=== PATIENT | male | born 1960 | race African-American/Black ===

== ENCOUNTER → 2016-10-17 | Outpatient (CLI) | payer OTHER ==
[~2016-10-17] MED LIST: ALBUAER3 INH; AMLO10 PO; ASPI81TA81; B-CO1TAB5; BLOOD GLUCOSE T1 TES; CYCL1TAB29 PO; DIPH25CA PO; GLYB5TAB3 PO; HYDR-3799 PO; HYDR25TA35 PO; HYDR25TA5 PO; IBUP400T20 PO; LEVEMIR SQ; LEVO25TA4 PO; LYSI1TAB4; METF1000 PO; METO100T PO; NAPR500T PO; NORV10TA OR; VITA500C9 CHEW; insulin needles SQ
[2016-10-17 10:53] LABS: BASOPHIL # 0.1 TH/MM3 (0-0.2); BASOPHIL % 1.1 % (0.0-2.0); EOSINOPHIL # 0.2 TH/MM3 (0-0.4); EOSINOPHIL % 3.8 % (0.0-4.0); HEMATOCRIT 39.9 % (39.0-51.0); HEMO FLAGS DIFF FINAL; LYMPH % 29.6 % (9.0-44.0); LYMPHOCYTE # 1.7 TH/MM3 (1.0-4.8); MEAN CELL VOLUME 81.8 FL (80.0-100.0); MEAN CORPUSCULAR HEMOGLOBIN 26.4 PG (27.0-34.0); MEAN CORPUSCULAR HGB CONC 32.2 % (32.0-36.0); MONO % 11.5 % (0.0-8.0); PLATELET COUNT 242 TH/MM3 (150-450); RED BLOOD COUNT 4.88 MIL/MM3 (4.50-5.90); RED CELL DISTRIBUTION WIDTH 15.3 % (11.6-17.2); WHITE BLOOD COUNT 5.6 TH/MM3 (4.0-11.0)
[2016-10-17 11:22] LABS: ALT (GPT) 48 U/L (12-78); ANION GAP 9 MEQ/L (5-15); AST (GOT) 30 U/L (15-37); BICARBONATE 28.5 MEQ/L (21.0-32.0); BLOOD UREA NITROGEN 9 MG/DL (7-18); CHLORIDE 103 MEQ/L (98-107); GLOMERULAR FILTRATION RATE 97 ML/MIN (>89); GLUCOSE,FASTING 154 MG/DL (74-99); POTASSIUM 3.6 MEQ/L (3.5-5.1); SODIUM (NA) 140 MEQ/L (136-145)
[2016-10-17 11:32] LABS: ALKALINE PHOSPHATASE 73 U/L (45-117); LDL CHOLESTEROL 104 MG/DL (0-99); TOTAL BILIRUBIN ADULT 0.4 MG/DL (0.2-1.0)
[2016-10-17 16:47] LABS: HEMOGLOBIN A1a 1.1 %; HEMOGLOBIN A1b 2.2 %; HEMOGLOBIN LA1C 2.2 %; HEMOGLOBIN P3 3.8 %
== END ==
LOC: CLAB 10:24
PROVIDERS: ATTEND Family Medicine
DX: E78.5 Hyperlipidemia, unspecified (principal); I10 Essential (primary) hypertension; E11.9 Type 2 diabetes mellitus without complications
CPT/HCPCS: 36415; 80053; 80061; 83036; 84443; 85025

== ENCOUNTER 2016-12-25 18:11 | Emergency (ER) | payer OTHER ==
[~2016-12-25] VITALS: Ht 180.3 cm; Wt 118.0 kg
[~2016-12-25 18:11] MED LIST changes: -HYDR-3799 PO; -NORV10TA OR
[2016-12-25 18:14] VITALS: BP 175/106; PULSE 80; RESP 20; TEMP 98.5; O2SAT 95
[2016-12-25 21:19] VITALS: BP 170/100; PULSE 70; RESP 16; TEMP 98.5; O2SAT 97
--- NOTE | 2016-12-25 21:24 | PD ---
HPI Chief Complaint: Edema Time Seen by Provider: 21:24 Travel History International Travel<30 days: No Contact w/Intl Traveler<30days: No Traveled to known affect area: No History of Present Illness HPI 56-year-old male with PMH of T2 DM, poorly controlled, hypertension, CAD, asthma presents to the ED for evaluation of "weeks long" history of edema bilateral lower extremities. Gradual onset. Patient also complains of worsening shortness of breath, especially with activity. He denies fevers, chills, chest pain, palpitations, cough, abdominal pain, nausea, vomiting, dysuria, back pain. He states that he was out of HCTZ but has been compliant for the last 3 or 4 days. 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 He does not wear compression stockings. Edema is improved by elevation of the legs. Patient is followed by Dr. Leblanc. [facility] Past Medical History Hx Anticoagulant Therapy: Yes (ASA) Autoimmune Disease: No Blood Disorders: No Heart Rhythm Problems: No Cancer: No Cardiovascular Problems: Yes High Cholesterol: No Congestive Heart Failure: No Cerebrovascular Accident: No Diabetes: Yes Hypertension: Yes Psychiatric: No Respiratory: Yes Myocardial Infarction: No Seizures: No Thyroid Disease: No Past Surgical History AICD: No Genitourinary Surgery: No Pacemaker: No Social History Tobacco Use: No Allergies-Medications (Allergen,Severity, Reaction): Coded Allergies: Codeine (Verified Allergy, Severe, SOB, 12/25/16) Reported Meds & Prescriptions Reported Meds & Active Scripts Active Hydrochlorothiazide 25 Mg Tab 25 Mg PO BID [insulin needles] Unit SQ DAILY Norvasc (Amlodipine Besylate) 10 Mg Tab 10 Mg PO DAILY Metoprolol Tartrate 100 Mg Tab 100 Mg PO BID Metformin (Metformin HCl) 1,000 Mg Tab 1,000 Mg PO BIDPC With meals Levothyroxine (Levothyroxine Sodium) 25 Mcg Tab 12.5 Mcg PO DAILY Naproxen 500 Mg Tab 500 Mg PO BID Hydralazine (Hydralazine HCl) 25 Mg Tab 25 Mg PO BID Take with a meal Glyburide 5 Mg Tab 5 Mg PO BID Take with meals at the same time each day Reported Levemir Inj (Insulin Detemir) 1,000 unit/ 10 ML Vial 50 Units SQ HS Do not mix with any other Insulin. Vitamin C (Ascorbic Acid) 500 Mg Chew 500 Mg CHEW DAILY Blood Glucose Test Strips 1 Caprice Caprice 1 Ea .ROUTE DIRECTED Flexeril (Cyclobenzaprine HCl) 10 Mg Tab 10 Mg PO TID Proair Hfa 8.5 GM Inh (Albuterol Sulfate) 90 Mcg/Act Aer 2 Puff INH Q4-6H PRN 108 mcg/actuation Aspir-81 (Aspirin) 81 Mg Tabdr Super B-Complex (B-Complex W/Biotin & Folic Acid) 1 Tab Diphenhydramine (Diphenhydramine HCl) 25 Mg Cap 25 Mg PO HS PRN Ibuprofen 400 Mg Tab 400 Mg PO Q4H PRN Lysine (Lysine HCl) 500 Mg Tab Review of Systems Except as stated in HPI: all other systems reviewed are Neg Physical Exam Narrative GENERAL: Well-nourished, well-developed obese black male in no acute distress. SKIN: Focused skin assessment warm/dry. Venous stasis changes of bilateral lower extremities. HEAD: Normocephalic. EYES: No scleral icterus. No injection or drainage. NECK: Supple, trachea midline. No JVD or lymphadenopathy. CARDIOVASCULAR: Regular rate and rhythm without murmurs, gallops, or rubs. 2+ Dp and radial pulses bilaterally. RESPIRATORY: Breath sounds clear and equal bilaterally. No accessory muscle use. GASTROINTESTINAL: Abdomen soft, protuberant, non-tender, nondistended. Active bowel sounds. MUSCULOSKELETAL: No cyanosis. 2+ pitting edema to the knees bilaterally. Negative Hohmann sign bilaterally. BACK: Nontender without obvious deformity. No CVA tenderness. Data Data Last Documented VS Vital Signs Date Time Temp Pulse Resp B/P Pulse Ox O2 Delivery O2 Flow Rate FiO2 12/25/16 21:30 98 12/25/16 21:19 98.5 70 16 170/100 Room Air Orders Complete Blood Count With Diff (12/25/16 21:36) Comprehensive Metabolic Panel (12/25/16 21:36) B-Type Natriuretic Peptide (12/25/16 21:36) Urinalysis - C+S If Indicated (12/25/16 21:36) Iv Access Insert/Monitor (12/25/16 21:36) Chest, Single Ap (12/25/16 21:36) Sodium Chloride 0.9% Flush (Ns Flush) (12/25/16 21:45) Electrocardiogram (12/25/16 ) Labs Laboratory Tests Test 12/25/16 12/25/16 21:40 22:00 White Blood Count 6.6 TH/MM3 Red Blood Count 5.06 MIL/MM3 Hemoglobin 13.2 GM/DL Hematocrit 41.0 % Mean Corpuscular Volume 81.0 FL Mean Corpuscular Hemoglobin 26.1 PG Mean Corpuscular Hemoglobin 32.2 % Concent Red Cell Distribution Width 15.5 % Platelet Count 239 TH/MM3 Mean Platelet Volume 9.4 FL Neutrophils (%) (Auto) 52.2 % Lymphocytes (%) (Auto) 33.7 % Monocytes (%) (Auto) 9.3 % Eosinophils (%) (Auto) 4.0 % Basophils (%) (Auto) 0.8 % Neutrophils # (Auto) 3.4 TH/MM3 Lymphocytes # (Auto) 2.2 TH/MM3 Monocytes # (Auto) 0.6 TH/MM3 Eosinophils # (Auto) 0.3 TH/MM3 Basophils # (Auto) 0.1 TH/MM3 CBC Comment DIFF FINAL Differential Comment Sodium Level 140 MEQ/L Potassium Level 3.5 MEQ/L Chloride Level 100 MEQ/L Carbon Dioxide Level 31.5 MEQ/L Anion Gap 9 MEQ/L Blood Urea Nitrogen 14 MG/DL Creatinine 1.05 MG/DL Estimat Glomerular Filtration 89 ML/MIN Rate Random Glucose 88 MG/DL Calcium Level 9.3 MG/DL Total Bilirubin 0.4 MG/DL Aspartate Amino Transf 34 U/L (AST/SGOT) Alanine Aminotransferase 49 U/L (ALT/SGPT) Alkaline Phosphatase 80 U/L B-Type Natriuretic Peptide 24 PG/ML Total Protein 7.5 GM/DL Albumin 3.8 GM/DL Urine Color LIGHT-YELLOW Urine Turbidity CLEAR Urine pH 6.0 Urine Specific Dille 1.018 Urine Protein TRACE mg/dL Urine Glucose (UA) NEG mg/dL Urine Ketones NEG mg/dL Urine Occult Blood SMALL Urine Nitrite NEG Urine Bilirubin NEG Urine Urobilinogen LESS THAN 2.0 MG/DL Urine Leukocyte Esterase NEG Urine RBC 2 /hpf Urine WBC LESS THAN 1 /hpf Urine Mucus FEW /lpf Microscopic Urinalysis Comment CULT NOT INDICATED MDM Medical Decision Making Medical Screen Exam Complete: Yes Emergency Medical Condition: Yes Differential Diagnosis dependent edema versus venous stasis dermatitis versus electrolyte abnormality versus CHF versus other Narrative Course 56-year-old T2 diabetic with history of HTN, asthma presents to the ED for evaluation of lower extremity edema and "darkening of the skin of the lower legs." Also complains of shortness of breath, worsened by activity. Denies chest pain, palpitations, abdominal pain, nausea, vomiting. He states that he had been out of his HCTZ for a about a week but has been compliant over the last 3 or 4 days. 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 He is particularly worried about the darkening of the skin of his legs. Vitals reviewed. Physical exam reveals a nontoxic appearing obese black male in no acute distress. There is 2+ edema to the knees bilaterally but the physical exam is otherwise unremarkable. CBC, CMP, UA unremarkable. BNP 54. CXR clear. This is dependent edema and venous stasis dermatitis. Patient instructed to resume at home meds, wear compression stockings, follow up with Dr. Leblanc. He indicated understanding of the instructions and is agreeable to the care plan. He is stable and discharged home. Diagnosis Primary Impression: Dependent edema Additional Impression: Venous stasis dermatitis of both lower extremities Referrals: Michelle Leblanc MD Patient Instructions: General Instructions, Leg Edema (ED) Additional Instructions: Rest, hydrate. Continue with your previously prescribed medications. Wear compression stockings when standing for long periods of time. Elevate the legs after long periods of standing to improve edema. Follow-up with Dr. Leblanc as discussed. Return to the ED for any urgent or emergent medical condition. Disposition: 01 DISCHARGE HOME Condition: Stable Bell Crowe December 25, 2016 21:24
[2016-12-25] MEDS ORDERED: SODIUM CHLORIDE 0.9% FLUSH 10 ML FLUSH IVF PRN (21:45)
[2016-12-25] MEDS ORDERED: LEVEMIR SQ (21:48)
[2016-12-25 22:09] LABS: AUTOMATED NEUTROPHIL # 3.4 TH/MM3 (1.8-7.7); BASOPHIL # 0.1 TH/MM3 (0-0.2); BASOPHIL % 0.8 % (0.0-2.0); EOSINOPHIL # 0.3 TH/MM3 (0-0.4); HEMO FLAGS DIFF FINAL; LYMPH % 33.7 % (9.0-44.0); LYMPHOCYTE # 2.2 TH/MM3 (1.0-4.8); MEAN CORPUSCULAR HEMOGLOBIN 26.1 PG (27.0-34.0); MEAN CORPUSCULAR HGB CONC 32.2 % (32.0-36.0); MONO % 9.3 % (0.0-8.0); NEUT % 52.2 % (16.0-70.0); PLATELET COUNT 239 TH/MM3 (150-450); RED BLOOD COUNT 5.06 MIL/MM3 (4.50-5.90); RED CELL DISTRIBUTION WIDTH 15.5 % (11.6-17.2); WHITE BLOOD COUNT 6.6 TH/MM3 (4.0-11.0)
--- NOTE | 2016-12-25 22:14 | RADRPT ---
EXAM DATE/TIME: 12/25/2016 21:48 [place] COMPARISON: No previous studies available for comparison. INDICATIONS : Short of Breath MEDICAL HISTORY : Diabetes mellitus type II. Hypertension SURGICAL HISTORY : None. ENCOUNTER: Initial ACUITY: 1 day PAIN SCORE: 0/10 LOCATION: Bilateral chest FINDINGS: There is basilar density most characteristic of atelectasis. Mild elevation left hemidiaphragm. No ef fusion. No pneumothorax. Tortuous aorta. CONCLUSION: 1. Basilar atelectasis. Elevated left hemidiaphragm. Tortuous aorta. Roldan Holland MD on December 25, 2016 at 22:10 Board Certified Radiologist. This report was verified electronically.
[2016-12-25 22:18] LABS: BLOOD, URINE SMALL (NEG); COMMENT (UR) CULT NOT INDICATED; CULTURE IF INDICATED CULT NOT INDICATED; GLUCOSE,URINE NEG (NEG); KETONE, URINE NEG (NEG); MUCUS URINE FEW /lpf (OCC); NITRITE,URINE NEG (NEG); URINE COLOR LIGHT-YELLOW (YELLW/STRAW)
[2016-12-25 22:46] LABS: ANION GAP 9 MEQ/L (5-15); AST (GOT) 34 U/L (15-37); BICARBONATE 31.5 MEQ/L (21.0-32.0); BLOOD UREA NITROGEN 14 MG/DL (7-18); CHLORIDE 100 MEQ/L (98-107); GLOMERULAR FILTRATION RATE 89 ML/MIN (>89); POTASSIUM 3.5 MEQ/L (3.5-5.1); SODIUM (NA) 140 MEQ/L (136-145)
[2016-12-25 22:50] LABS: ALKALINE PHOSPHATASE 80 U/L (45-117); ALT (GPT) 49 U/L (12-78); TOTAL BILIRUBIN ADULT 0.4 MG/DL (0.2-1.0)
--- NOTE | 2016-12-26 00:47 | PD ---
Data Data Last Documented VS Vital Signs Date Time Temp Pulse Resp B/P Pulse Ox O2 Delivery O2 Flow Rate FiO2 12/25/16 21:30 98 12/25/16 21:19 98.5 70 16 170/100 Room Air Orders Complete Blood Count With Diff (12/25/16 21:36) Comprehensive Metabolic Panel (12/25/16 21:36) B-Type Natriuretic Peptide (12/25/16 21:36) Urinalysis - C+S If Indicated (12/25/16 21:36) Iv Access Insert/Monitor (12/25/16 21:36) Chest, Single Ap (12/25/16 21:36) Sodium Chloride 0.9% Flush (Ns Flush) (12/25/16 21:45) Labs Laboratory Tests Test 12/25/16 12/25/16 21:40 22:00 White Blood Count 6.6 TH/MM3 Red Blood Count 5.06 MIL/MM3 Hemoglobin 13.2 GM/DL Hematocrit 41.0 % Mean Corpuscular Volume 81.0 FL Mean Corpuscular Hemoglobin 26.1 PG Mean Corpuscular Hemoglobin 32.2 % Concent Red Cell Distribution Width 15.5 % Platelet Count 239 TH/MM3 Mean Platelet Volume 9.4 FL Neutrophils (%) (Auto) 52.2 % Lymphocytes (%) (Auto) 33.7 % Monocytes (%) (Auto) 9.3 % Eosinophils (%) (Auto) 4.0 % Basophils (%) (Auto) 0.8 % Neutrophils # (Auto) 3.4 TH/MM3 Lymphocytes # (Auto) 2.2 TH/MM3 Monocytes # (Auto) 0.6 TH/MM3 Eosinophils # (Auto) 0.3 TH/MM3 Basophils # (Auto) 0.1 TH/MM3 CBC Comment DIFF FINAL Differential Comment Sodium Level 140 MEQ/L Potassium Level 3.5 MEQ/L Chloride Level 100 MEQ/L Carbon Dioxide Level 31.5 MEQ/L Anion Gap 9 MEQ/L Blood Urea Nitrogen 14 MG/DL Creatinine 1.05 MG/DL Estimat Glomerular Filtration 89 ML/MIN Rate Random Glucose 88 MG/DL Calcium Level 9.3 MG/DL Total Bilirubin 0.4 MG/DL Aspartate Amino Transf 34 U/L (AST/SGOT) Alanine Aminotransferase 49 U/L (ALT/SGPT) Alkaline Phosphatase 80 U/L B-Type Natriuretic Peptide 24 PG/ML Total Protein 7.5 GM/DL Albumin 3.8 GM/DL Urine Color LIGHT-YELLOW Urine Turbidity CLEAR Urine pH 6.0 Urine Specific [place] 1.018 Urine Protein TRACE mg/dL Urine Glucose (UA) NEG mg/dL Urine Ketones NEG mg/dL Urine Occult Blood SMALL Urine Nitrite NEG Urine Bilirubin NEG Urine Urobilinogen LESS THAN 2.0 MG/DL Urine Leukocyte Esterase NEG Urine RBC 2 /hpf Urine WBC LESS THAN 1 /hpf Urine Mucus FEW /lpf Microscopic Urinalysis Comment CULT NOT INDICATED MDM Supervised Visit with ELISHA: Yes Narrative Course The history, exam, and medical decision-making in the associated midlevel provider note were completed with my assistance. I reviewed and agree with the findings presented. I attest that I had a [id number] encounter with the patient on the same day, and personally performed and documented my assessment and findings in the medical record. *My assessment and Findings: This is a 56-year-old male who presents to the emergency department having increasing lower extremity edema over the past several weeks. He's been following with Dr. Leblanc for this and was on HCTZ but he ran out of that for a week and his swelling increased. He was concerned if he had some dark discoloration on his legs. Think the dark discoloration is due to venous stasis. Labs were obtained which were reassuring. I don't suspect he has a DVT given his swelling is symmetric and subacute. Patient will be discharged and will follow-up with Dr. Leblanc. Diagnosis Primary Impression: Dependent edema Additional Impression: Venous stasis dermatitis of both lower extremities Patient Instructions: General Instructions, Leg Edema (ED) Departure Forms: Tests/Procedures Additional Instruction: Rest, hydrate. Continue with your previously prescribed medications. Wear compression stockings when standing for long periods of time. Elevate the legs after long periods of standing to improve edema. Follow-up with Dr. Leblanc as discussed. Return to the ED for any urgent or emergent medical condition. Disposition: 01 DISCHARGE HOME Condition: Stable Bere Coello MD December 26, 2016 00:47
--- NOTE | 2016-12-26 11:17 | EKG ---
Date Performed: 12/25/2016 Time Performed: 21:49:19 PTAGE: 56 years EKG: Sinus rhythm NORMAL ECG NO PREVIOUS TRACING DOCTOR: Angus Stvoer Interpretating Date/Time 12/26/2016 11:14:06
[2017-01-02] MEDS ORDERED: AMLO10 PO (09:49)
[2017-01-19] MEDS ORDERED: HYDR25TA5 PO (08:05)
[2017-01-19] MEDS ORDERED: GLYB5TAB3 PO (08:06)
[2017-01-23] MEDS ORDERED: LEVEMIR SQ (08:34)
[2017-01-23] MEDS ORDERED: BLOOD GLUCOSE T1 TES (12:48)
[2017-01-23] MEDS ORDERED: HYDR25TA5 PO (16:03)
[2017-01-30] MEDS ORDERED: HYDR-3799 PO (13:15)
[2017-02-14] MEDS ORDERED: METF1000 PO (14:32)
== END 2016-12-26 00:13 | disposition home or self-care (01) ==
LOC: NEPC 18:11
DX: R60.0 Localized edema (principal); I87.2 Venous insufficiency (chronic) (peripheral); L30.9 Dermatitis, unspecified
CPT/HCPCS: 71010; 80053; 81001; 83880; 85025; 93005

== ENCOUNTER → 2017-02-16 | Outpatient (CLI) | payer OTHER ==
[~2017-02-16] MED LIST changes: +HYDR-3799 PO; -HYDR25TA35 PO
== END ==
LOC: CLAB 13:20
PROVIDERS: ATTEND Nurse Practitioner Family
DX: R79.89 Other specified abnormal findings of blood chemistry (principal)
CPT/HCPCS: 36415; 84443

== ENCOUNTER → 2017-03-15 | Outpatient (CLI) | payer OTHER ==
[~2017-03-15] MED LIST changes: +ASCO500T PO; +B-CO1TAB22 PO
[2017-03-15 09:23] LABS: ANION GAP 7 MEQ/L (5-15); AST (GOT) 22 U/L (15-37); BICARBONATE 28.7 MEQ/L (21.0-32.0); BLOOD UREA NITROGEN 20 MG/DL (7-18); CHLORIDE 103 MEQ/L (98-107); GLOMERULAR FILTRATION RATE 79 ML/MIN (>89); GLUCOSE,FASTING 67 MG/DL (74-99); POTASSIUM 3.4 MEQ/L (3.5-5.1); SODIUM (NA) 139 MEQ/L (136-145)
[2017-03-15 09:27] LABS: ALKALINE PHOSPHATASE 68 U/L (45-117); ALT (GPT) 33 U/L (12-78); TOTAL BILIRUBIN ADULT 0.4 MG/DL (0.2-1.0)
[2017-03-15 17:06] LABS: HEMOGLOBIN A1a 1.1 %; HEMOGLOBIN A1b 2.6 %; HEMOGLOBIN Ao 80.1 %; HEMOGLOBIN LA1C 1.6 %; HEMOGLOBIN P3 4.2 %
== END ==
LOC: CLAB 08:30
PROVIDERS: ATTEND Physical Medicine & Rehabilitation
DX: E11.9 Type 2 diabetes mellitus without complications (principal); I10 Essential (primary) hypertension
CPT/HCPCS: 36415; 80053; 83036

== ENCOUNTER → 2017-03-16 | Outpatient (CLI) | payer OTHER | LOC: CLAB 09:22 | PROVIDERS: ATTEND Family Medicine | DX: E03.9 Hypothyroidism, unspecified (principal) | CPT/HCPCS: 36415; 84443 ==

== ENCOUNTER 2017-10-18 12:29 | Emergency (ER) | payer SELFPAY ==
[~2017-10-18] VITALS: Ht 180.3 cm; Wt 120.0 kg
[~2017-10-18 12:29] MED LIST changes: -B-CO1TAB5; +BD I0.3M; +CYCL10TA PO; -CYCL1TAB29 PO; +IBUP1TAB5 PO; -IBUP400T20 PO; -LYSI1TAB4; +LYSI500T12; -NAPR500T PO; +NAPR500T2 PO; -VITA500C9 CHEW
[2017-10-18 12:51] VITALS: BP 154/91; PULSE 82; RESP 17; TEMP 98.3; O2SAT 96
[2017-10-18 13:25] LABS: AUTOMATED NEUTROPHIL # 3.1 TH/MM3 (1.8-7.7); BASOPHIL # 0.1 TH/MM3 (0-0.2); EOSINOPHIL # 0.2 TH/MM3 (0-0.4); EOSINOPHIL % 3.4 % (0.0-4.0); HEMATOCRIT 41.4 % (39.0-51.0); HEMOGLOBIN 13.4 GM/DL (13.0-17.0); LYMPH % 32.9 % (9.0-44.0); MEAN CELL VOLUME 82.2 FL (80.0-100.0); MEAN CORPUSCULAR HEMOGLOBIN 26.7 PG (27.0-34.0); MEAN CORPUSCULAR HGB CONC 32.4 % (32.0-36.0); MONO % 10.2 % (0.0-8.0); MONOCYTE # 0.6 TH/MM3 (0-0.9); NEUT % 52.5 % (16.0-70.0); PLATELET COUNT 262 TH/MM3 (150-450); RED BLOOD COUNT 5.03 MIL/MM3 (4.50-5.90); RED CELL DISTRIBUTION WIDTH 15.1 % (11.6-17.2); WHITE BLOOD COUNT 5.9 TH/MM3 (4.0-11.0)
[2017-10-18 13:46] LABS: ALBUMIN 3.3 GM/DL (3.4-5.0); ALKALINE PHOSPHATASE 94 U/L (45-117); ALT (GPT) 41 U/L (12-78); AST (GOT) 19 U/L (15-37); BICARBONATE 25.8 MEQ/L (21.0-32.0); BLOOD UREA NITROGEN 14 MG/DL (7-18); CALCIUM 8.8 MG/DL (8.5-10.1); CHLORIDE 103 MEQ/L (98-107); GLOMERULAR FILTRATION RATE 69 ML/MIN (>89); GLUCOSE,RANDOM 404 MG/DL (74-106); SODIUM (NA) 138 MEQ/L (136-145); TOTAL BILIRUBIN ADULT 0.2 MG/DL (0.2-1.0); TOTAL PROTEIN 7.3 GM/DL (6.4-8.2)
[2017-10-18] MEDS ORDERED: SODIUM CHLOR 0.9% 1000 ML INJ 1,000 ML IV SCH (14:55)
[2017-10-18] MEDS ORDERED: NOVONP2 SQ (14:57)
[2017-10-18] MEDS ORDERED: INSULIN HUMAN REGULAR 1,000 UNITS/10 ML VIAL IV PUSH ONE (15:00)
--- NOTE | 2017-10-18 15:00 | PD ---
HPI Chief Complaint: Diabetic Time Seen by Provider: 14:46 Travel History International Travel<30 days: No Contact w/Intl Traveler<30days: No Traveled to known affect area: No History of Present Illness HPI 57-year-old male with history of diabetes, hypertension presents for evaluation of blurred vision and elevated blood sugar. He reports that he has been out of his nightly novolin 50 units for 3 months and thus he has not been checking his blood sugar until recently. Recently checked his blood sugar was over 600. He reports that he was finally able to get a refill of it 2 days ago and so he has been using for the past 2 days. In addition he uses metformin 1000 mg bid and an unknown dose of glyburide. He reports over the past several days he has had bilateral blurred vision. Is any ocular pain, headache, chest pain, shortness of breath, nausea, vomiting. He has had polyuria, polydipsia and polyphagia. He has no other complaints at this time. PFSH Past Medical History Hx Anticoagulant Therapy: Yes (ASA) Asthma: Yes Autoimmune Disease: No Blood Disorders: No Heart Rhythm Problems: No Cancer: No Cardiovascular Problems: Yes High Cholesterol: Yes Congestive Heart Failure: No Cerebrovascular Accident: No Diabetes: Yes Diminished Hearing: No Gastrointestinal Disorders: Yes (Hemmroids) Hypertension: Yes Psychiatric: No Respiratory: Yes Myocardial Infarction: No Seizures: No Thyroid Disease: Yes (Hypo) Past Surgical History AICD: No Genitourinary Surgery: No Pacemaker: No Social History Alcohol Use: No Tobacco Use: No Substance Use: No Allergies-Medications (Allergen,Severity, Reaction): Coded Allergies: codeine (Unverified Allergy, Severe, SOB, 10/18/17) Reported Meds & Prescriptions Reported Meds & Active Scripts Active Norvasc (Amlodipine Besylate) 10 Mg Tab 10 Mg PO DAILY Proair Hfa 8.5 GM Inh (Albuterol Sulfate) 90 Mcg/Act Aer 2 Puff INH Q4-6H PRN 108 mcg/actuation Bd Insulin Syringe Safety 31G X 516" 0.3 ml (Insulin Syringe/Needle U-100) 1 Mis Mis Box DAILY Levothyroxine (Levothyroxine Sodium) 25 Mcg Tab 1.5 Tab PO DAILY Naproxen 500 Mg Tab 500 Mg PO BID Metformin (Metformin HCl) 1,000 Mg Tab 1,000 Mg PO BIDPC With meals Hydralazine HCl 25 Mg Tablet 25 Mg PO BID Hydrochlorothiazide 25 Mg Tab 25 Mg PO BID Blood Glucose Test Strips 1 Caprice Caprice 1 Ea .ROUTE DIRECTED Glyburide 5 Mg Tab 5 Mg PO BID Take with meals at the same time each day Metoprolol Tartrate 100 Mg Tab 100 Mg PO BID Reported Novolin N Inj (Insulin Human NPH) 1,000 Unit/10 Ml Vial 50 Units SQ HS Leilani-Bee/C (B-Complex W/ C & Folic Acid) 1 Tab 1 Tab PO DAILY Ascorbic Acid 500 Mg Tab 500 Mg PO DAILY Flexeril (Cyclobenzaprine HCl) 10 Mg Tab 10 Mg PO TID Aspir-81 (Aspirin) 81 Mg Tabdr Diphenhydramine (Diphenhydramine HCl) 25 Mg Cap 25 Mg PO HS PRN Ibuprofen 400 Mg Tab 400 Mg PO Q4H PRN Lysine (Lysine HCl) 500 Mg Tab Review of Systems Except as stated in HPI: all other systems reviewed are Neg Physical Exam Narrative GENERAL: Well-developed well-nourished male in no acute distress SKIN: Warm and dry. HEAD: Atraumatic. Normocephalic. EYES: Pupils equal and round reactive to light extraocular muscles are intact. No scleral icterus. No injection or drainage. ENT: No nasal bleeding or discharge. Mucous membranes pink and moist. NECK: Trachea midline. No JVD. CARDIOVASCULAR: Regular rate and rhythm. No murmur appreciated. RESPIRATORY: No accessory muscle use. Clear to auscultation. Breath sounds equal bilaterally. GASTROINTESTINAL: Abdomen soft, non-tender, nondistended. Hepatic and splenic margins not palpable. MUSCULOSKELETAL: No obvious deformities. No clubbing. No cyanosis. No edema. NEUROLOGICAL: Awake and alert. No obvious cranial nerve deficits. Motor grossly within normal limits. Normal speech. PSYCHIATRIC: Appropriate mood and affect; insight and judgment normal. Data Data Last Documented VS Vital Signs Date Time Temp Pulse Resp B/P (MAP) Pulse Ox O2 Delivery O2 Flow Rate FiO2 10/18/17 12:51 98.3 82 17 154/91 (112) 96 Orders Orders Complete Blood Count With Diff (10/18/17 12:55) Blood Glucose (10/18/17 12:55) Comprehensive Metabolic Panel (10/18/17 12:55) Insulin Human Regular Inj (Novolin R Inj (10/18/17 15:00) Sodium Chlor 0.9% 1000 Ml Inj (Ns 1000 M (10/18/17 14:55) Labs Laboratory Tests Test 10/18/17 13:08 White Blood Count 5.9 TH/MM3 Red Blood Count 5.03 MIL/MM3 Hemoglobin 13.4 GM/DL Hematocrit 41.4 % Mean Corpuscular Volume 82.2 FL Mean Corpuscular Hemoglobin 26.7 PG Mean Corpuscular Hemoglobin Concent 32.4 % Red Cell Distribution Width 15.1 % Platelet Count 262 TH/MM3 Mean Platelet Volume 10.0 FL Neutrophils (%) (Auto) 52.5 % Lymphocytes (%) (Auto) 32.9 % Monocytes (%) (Auto) 10.2 % Eosinophils (%) (Auto) 3.4 % Basophils (%) (Auto) 1.0 % Neutrophils # (Auto) 3.1 TH/MM3 Lymphocytes # (Auto) 2.0 TH/MM3 Monocytes # (Auto) 0.6 TH/MM3 Eosinophils # (Auto) 0.2 TH/MM3 Basophils # (Auto) 0.1 TH/MM3 CBC Comment DIFF FINAL Differential Comment Blood Urea Nitrogen 14 MG/DL Creatinine 1.30 MG/DL Random Glucose 404 MG/DL Total Protein 7.3 GM/DL Albumin 3.3 GM/DL Calcium Level 8.8 MG/DL Alkaline Phosphatase 94 U/L Aspartate Amino Transf (AST/SGOT) 19 U/L Alanine Aminotransferase (ALT/SGPT) 41 U/L Total Bilirubin 0.2 MG/DL Sodium Level 138 MEQ/L Potassium Level 3.6 MEQ/L Chloride Level 103 MEQ/L Carbon Dioxide Level 25.8 MEQ/L Anion Gap 9 MEQ/L Estimat Glomerular Filtration Rate 69 ML/MIN [facility] Medical Decision Making Medical Screen Exam Complete: Yes Emergency Medical Condition: Yes Medical Record Reviewed: Yes Differential Diagnosis Medication noncompliance, hyperglycemia, diabetic retinopathy, bilateral retinal artery occlusions Narrative Course The patient's blurred vision appears to be related to his significant hyperglycemia and medication noncompliance. His blood sugar today is 404. The patient was given an insulin bolus and IV fluids and upon recheck his blood sugars 85. He is stable for discharge. Recommended outpatient follow-up for dilated eye examination and continued treatment of his diabetes. Diagnosis Primary Impression: Hyperglycemia Additional Impression: Blurred vision Referrals: [facility] Additional Instructions: Monitor your blood sugar in a regular basis and keep a journal of these readings. Medication as prescribed. 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 Return for any emergent medical conditions. Med/Other Pt SpecificInfo: No Change to Meds Disposition: 01 DISCHARGE HOME Condition: Stable Jace Jeffries Oct 18, 2017 15:00
== END 2017-10-18 17:14 | disposition home or self-care (01) ==
LOC: NEPE 12:29
DX: E11.65 Type 2 diabetes mellitus with hyperglycemia (principal); H53.8 Other visual disturbances; Z91.14 Patient's other noncompliance with medication regimen; I10 Essential (primary) hypertension; J45.909 Unspecified asthma, uncomplicated; Z79.01 Long term (current) use of anticoagulants
CPT/HCPCS: 80053; 85025; 96361; 96374; 99284; J1815; J7030

== ENCOUNTER 2017-11-17 21:04 | Emergency (ER) | payer OTHER ==
[~2017-11-17] VITALS: Ht 180.3 cm; Wt 120.0 kg
[~2017-11-17 21:04] MED LIST changes: -LEVEMIR SQ; +NOVONP2 SQ; -insulin needles SQ
[2017-11-17 21:52] VITALS: BP 136/79; PULSE 67; RESP 16; TEMP 98.5; O2SAT 97
--- NOTE | 2017-11-17 22:25 | PD ---
HPI Chief Complaint: Foreign Body Time Seen by Provider: 22:19 Travel History International Travel<30 days: No Contact w/Intl Traveler<30days: No Traveled to known affect area: No History of Present Illness HPI Patient is a 57-year-old male presenting to the emergency department for evaluation of a possible retained character in his throat. Patient states he was eating carrots about 2 hours ago and felt it get lodged in his throat. He reports drinking water, eating macaroni and cheese to try to dislodge said carrot. He denies any shortness of breath, wheezing, chest pain. PFSH Past Medical History Hx Anticoagulant Therapy: Yes (ASA) Asthma: Yes Cardiac Catheterization: Yes Cardiovascular Problems: Yes (HTN, mild heart attack) High Cholesterol: Yes Chest Pain: Yes Diabetes: Yes (Metformin) Patient Takes Glucophage: Yes Gastrointestinal Disorders: Yes (Hemmroids) Headaches: Yes Hypertension: Yes Neurologic: Yes Psychiatric: No Respiratory: Yes Myocardial Infarction: Yes Seizures: No Thyroid Disease: Yes (Hypo) Tetanus Vaccination: < 5 Years Influenza Vaccination: No Past Surgical History AICD: No Genitourinary Surgery: No Pacemaker: No Social History Alcohol Use: No Tobacco Use: No Substance Use: No Allergies-Medications (Allergen,Severity, Reaction): Coded Allergies: codeine (Unverified Allergy, Severe, SOB, 10/18/17) Reported Meds & Prescriptions Reported Meds & Active Scripts Active Norvasc (Amlodipine Besylate) 10 Mg Tab 10 Mg PO DAILY Proair Hfa 8.5 GM Inh (Albuterol Sulfate) 90 Mcg/Act Aer 2 Puff INH Q4-6H PRN 108 mcg/actuation Bd Insulin Syringe Safety 31G X 5/16" 0.3 ml (Insulin Syringe/Needle U-100) 1 Mis Mis Box DAILY Levothyroxine (Levothyroxine Sodium) 25 Mcg Tab 1.5 Tab PO DAILY Naproxen 500 Mg Tab 500 Mg PO BID Metformin (Metformin HCl) 1,000 Mg Tab 1,000 Mg PO BIDPC With meals Hydralazine HCl 25 Mg Tablet 25 Mg PO BID Hydrochlorothiazide 25 Mg Tab 25 Mg PO BID Blood Glucose Test Strips 1 Caprice Caprice 1 Ea .ROUTE DIRECTED Glyburide 5 Mg Tab 5 Mg PO BID Take with meals at the same time each day Metoprolol Tartrate 100 Mg Tab 100 Mg PO BID Reported Novolin N Inj (Insulin Human NPH) 1,000 Unit/10 Ml Vial 50 Units SQ HS Leilani-Bee/C (B-Complex W/ C & Folic Acid) 1 Tab 1 Tab PO DAILY Ascorbic Acid 500 Mg Tab 500 Mg PO DAILY Flexeril (Cyclobenzaprine HCl) 10 Mg Tab 10 Mg PO TID Aspir-81 (Aspirin) 81 Mg Tabdr Diphenhydramine (Diphenhydramine HCl) 25 Mg Cap 25 Mg PO HS PRN Ibuprofen 400 Mg Tab 400 Mg PO Q4H PRN Lysine (Lysine HCl) 500 Mg Tab Review of Systems Except as stated in HPI: all other systems reviewed are Neg HENT: Positive: Other (Foreign body sensation in throat) Physical Exam Narrative GENERAL: Overweight, well-developed, alert -[place] male. Presenting in no acute distress. SKIN: Warm and dry. HEAD: Atraumatic. Normocephalic. EYES: Pupils equal and round. No scleral icterus. No injection or drainage. ENT: No nasal bleeding or discharge. Mucous membranes pink and moist. NECK: Trachea midline. No JVD. No stridor noted. CARDIOVASCULAR: Regular rate and rhythm. RESPIRATORY: No accessory muscle use. Clear to auscultation. Breath sounds equal bilaterally. GASTROINTESTINAL: Abdomen soft, non-tender, nondistended. Hepatic and splenic margins not palpable. MUSCULOSKELETAL: Extremities without clubbing, cyanosis, or edema. No obvious deformities. NEUROLOGICAL: Awake and alert. No obvious cranial nerve deficits. Motor grossly within normal limits. Five out of 5 muscle strength in the arms and legs. Normal speech. PSYCHIATRIC: Appropriate mood and affect; insight and judgment normal. Data Data Last Documented VS Vital Signs Date Time Temp Pulse Resp B/P (MAP) Pulse Ox O2 Delivery O2 Flow Rate FiO2 11/17/17 21:52 98.5 67 16 136/79 (98) 97 Orders Orders Soft Tissue Neck (11/17/17 ) Chest, Single Ap (11/17/17 ) MDM Medical Decision Making Medical Screen Exam Complete: Yes Emergency Medical Condition: Yes Interpretation(s) Vital Signs Date Time Temp Pulse Resp B/P (MAP) Pulse Ox O2 Delivery O2 Flow Rate FiO2 11/17/17 21:52 98.5 67 16 136/79 (98) 97 Differential Diagnosis Retained foreign body versus normal exam versus abrasion versus other Narrative Course Patient is a 57-year-old male presenting to the emergency department for evaluation of a possible retained carrot in his throat. Patient's vital signs are stable, there is no wheezing or stridor on exam. Imaging ordered and pending. CARE of patient will be transferred to my attending physician who will determine patient's disposition. Katherine Stuart Nov 17, 2017 22:25
--- NOTE | 2017-11-17 22:53 | RADRPT ---
EXAM DATE/TIME: 11/17/2017 22:36 [facility] COMPARISON: No previous studies available for comparison. INDICATIONS : Evaluate for foreign body, choked on a carrot. MEDICAL HISTORY : Hypertension. Diabetes mellitus type II. Myocardial infarction. SURGICAL HISTORY : Cardiac cath ENCOUNTER: Initial ACUITY: 1 day PAIN SCORE: 8/10 LOCATION: Bilateral throat FINDINGS: Two view examination of the soft tissues of the neck demonstrates the hypopharyngeal airway to have a grossly normal configuration. The trachea is midline. No radiopaque foreign bodies are seen. CONCLUSION: Normal examination. The carrot would not be radiopaque, a noncontrast CT scan may be helpful if ther e is continued concern for a retained nonradioopaque foreign object. Steven Kate MD on November 17, 2017 at 22:51 Board Certified Radiologist. This report was verified electronically.
--- NOTE | 2017-11-17 22:54 | RADRPT ---
EXAM DATE/TIME: 11/17/2017 22:38 [facility] COMPARISON: CHEST SINGLE AP, December 25, 2016, 21:48. INDICATIONS : Shortness of breath. MEDICAL HISTORY : Diabetes mellitus type II. Hypertension Myocardial infarction. SURGICAL HISTORY : Cardiac cath ENCOUNTER: Initial ACUITY: 1 day PAIN SCORE: 8/10 LOCATION: Bilateral throat FINDINGS: A single view of the chest demonstrates the lungs to be symmetrically aerated without evidence of mas s, infiltrate or effusion. The cardiomediastinal contours are unremarkable. Osseous structures are intact. CONCLUSION: Normal examination. Steven Kate MD on November 17, 2017 at 22:52 Board Certified Radiologist. This report was verified electronically.
--- NOTE | 2017-11-17 23:08 | PD ---
Physical Exam Narrative Patient was seen by my engineer third assistant and signed out to me. Data Data Last Documented VS Vital Signs Date Time Temp Pulse Resp B/P (MAP) Pulse Ox O2 Delivery O2 Flow Rate FiO2 11/17/17 21:52 98.5 67 16 136/79 (98) 97 Orders Orders Soft Tissue Neck (11/17/17 ) Chest, Single Ap (11/17/17 ) MDM Supervised Visit with ELISHA: Yes Interpretation(s) Last Impressions Soft Tissue Neck X-Ray 11/17/17 0000 Signed Impressions: Service Date/Time: Friday, November 17, 2017 22:36 - CONCLUSION: Normal examination. The carrot would not be radiopaque, a noncontrast CT scan may be helpful if there is continued concern for a retained nonradioopaque foreign object. Steven Kate MD Chest X-Ray 11/17/17 0000 Signed Impressions: Service Date/Time: Friday, November 17, 2017 22:38 - CONCLUSION: Normal examination. Steven Kate MD Diagnosis Primary Impression: Esophageal abrasion Qualified Codes: S27.818A - Other injury of esophagus (thoracic part), initial encounter Patient Instructions: General Instructions Additional Instruction: Patient requests refill for albuterol inhaler and Levemir. Advised patient to follow with GI specialist if persistent problem with swallowing. Med/Other Pt SpecificInfo: Prescription(s) given Scripts Glucose Blood (Contour Blood Glucose Test Strip #100) Strp 1 STRIP XX DIRECTED, #100 STRIPS Prov: Rolando Chris MD 11/17/17 Albuterol 18 GM Inh (Ventolin Hfa 18 GM Inh) 90 Mcg/Act Aer 2 PUFF INH Q4-6H Y for SHORTNESS OF BREATH, #1 INHALER 0 Refills Prov: Rolando Chris MD 11/17/17 Insulin Detemir Inj (Levemir Inj) 1,000 unit/ 10 ML Vial 50 UNITS SQ HS for Blood Sugar Management, #10 VIAL 0 Refills Do not mix with any other Insulin. Prov: Rolando Chris MD 11/17/17 Disposition: 01 DISCHARGE HOME Condition: Stable Rolando Chris MD Nov 17, 2017 23:08
[2017-11-17] MEDS ORDERED: CONTOUR1 XX (23:13)
[2017-11-17] MEDS ORDERED: LEVEMIR SQ (23:13)
[2017-11-17] MEDS ORDERED: VENTAER INH (23:13)
== END 2017-11-17 23:47 | disposition home or self-care (01) ==
LOC: NEPC 21:04
DX: S27.818A Other injury of esophagus (thoracic part), initial encounter (principal); E03.9 Hypothyroidism, unspecified; E11.9 Type 2 diabetes mellitus without complications; I10 Essential (primary) hypertension; X58.XXXA Exposure to other specified factors, initial encounter; Z79.4 Long term (current) use of insulin
CPT/HCPCS: 70360; 71045; 99283